=== PATIENT | male | born 1980 | race African-American/Black ===

== ENCOUNTER 2020-12-02 03:16 | Observation (INO) ==
[2020-12-02] MEDS ORDERED: Ondansetron 4 MG/2 ML VIAL IVP ONE ×2 (05:07→14:21)
[2020-12-02 05:21] LABS: Basophils % 0.1 %; Eosinophils % 0.1 %; Hematocrit 41.7 % (37.5-50.1); Immature Granulocytes % 0.5 % (0-4); Lymphocytes % 6.6 %; Mean Corpuscular HGB Conc 33.6 g/dL (31.6-35.5); Mean Corpuscular Hemoglobin 30.9 pg (28.0-33.3); Mean Corpuscular Volume 92.1 fL (83.0-100.0); Mean Platelet Volume 10.7 fL (9.4-12.4); Monocytes # 1.2 K/mcL (0.0-1.3); Monocytes % 7.8 %; Platelet Count 282 K/mcL (140-400); Red Blood Count 4.53 M/mcL (4.19-5.50); Red Cell Distribution Width 13.9 % (11.5-14.5); Segmented Neutrophils % 84.9 %; White Blood Count 15.3 K/mcL (4.3-11.1)
[2020-12-02 05:31] LABS: Prothrombin Time 11.5 Seconds (9.4-12.1)
[2020-12-02 05:33] LABS: Activated Partial Thrombo Time 27.1 Seconds (26.0-36.0)
[2020-12-02 05:46] LABS: Acetaminophen < 10 mcg/mL (10-20); Alanine Aminotransferase 43 Units/L (7-52); Albumin 4.3 g/dL (3.5-5.7); Albumin/Globulin Ratio 1.8 (1.1-2.2); Alkaline Phosphatase 62 Units/L (34-104); Aspartate Amino Transferase 37 Units/L (13-39); BUN/Creatinine Ratio 10 (6-26); Bilirubin,Total 0.5 mg/dL (0.3-1.0); Blood Urea Nitrogen 14 mg/dL (6-20); Calcium 8.6 mg/dL (8.6-10.3); Carbon Dioxide 24 mEq/L (23-29); Chloride 109 mEq/L (98-107); Ethanol < 10 mg/dL (Less than 10); Globulin 2.4 g/dL (2.4-3.5); Glucose 75 mg/dL (70-105); Magnesium 2.2 mg/dL (1.6-2.6); Osmolality,Calculated 295 (280-300); Phosphorous 4.3 mg/dL (2.7-4.5); Potassium 4.6 mEq/L (3.5-5.1); Sodium 143 mEq/L (136-145); Total Protein 6.7 g/dL (6.4-8.9); eGFR For African Americans > 60 (> 60); eGFR For Non-African Americans 58 (> 60)
[2020-12-02 05:47] LABS: Salicylate < 2.5 mg/dL (15.0-30.0); Troponin I 0.08 ng/mL (< 0.04)
[2020-12-02] MEDS ORDERED: Aspirin 81 MG TAB.CHEW PO ONE (08:42)
[2020-12-02] MEDS ORDERED: Naloxone 0.4 MG/ML INJ IVP PRN (08:42)
[2020-12-02 08:43] LABS: Bilirubin,Urine Negative (Negative); Blood,Urine Trace-intact (Negative); Clarity,Urine Clear (Clear); Color,Urine Yellow (Yellow); Glucose,Urine (UA) Normal (Normal); Ketones,Urine 40 mg/dL (Negative); Leukocyte Esterase,Urine Negative (Negative); Nitrite,Urine Negative (Negative); PH,Urine 5.5 pH Units (5.0-8.0); Protein,Urine 100 mg/dL (Neg-Trace); Specific Gravity,Urine >= 1.030 (1.010-1.025)
[2020-12-02 08:49] LABS: WBC,Urine 0-3 per hpf (0-3)
[2020-12-02 08:50] LABS: Bacteria,Urine Few per hpf (None-Few); Hyaline Casts,Urine Many per lpf (None Seen); Mucus,Urine Moderate per lpf (None-Few)
[2020-12-02] MEDS ORDERED: cloNIDine HCL 0.1 MG TABLET PO SCH (09:00)
[2020-12-02 09:26] VITALS: BP 103/67
[2020-12-02] MEDS ORDERED: 0.9 % Sodium Chloride 1,000 ML IVC SCH (09:45)
[2020-12-02] MEDS ORDERED: Nicotine 14 MG PATCH.TD24 TD SCH (09:59)
[2020-12-02 10:35] LABS: Chol/HDL Ratio 2.7 (0-4.9)
[2020-12-02 10:39] LABS: Amphetamine Screen,Urine Positive ng/mL (Cutoff=1000); Barbiturate Screen,Urine Negative ng/mL (Cutoff=200); Benzodiazepines Screen,Urine Negative ng/mL (Cutoff=200); Cannabinoid Screen,Urine Positive ng/mL (Cutoff = 50); Cocaine Screen,Urine Negative ng/mL (Cutoff= 300); Opiate Screen,Urine Negative ng/mL (Cutoff=300); Phencyclidine Screen,Urine Negative ng/mL (Cutoff=25)
[2020-12-02] MEDS ORDERED: Perflutren Lipid Microsphere 1.3 ML in 0.9 % Sodium Chloride 8.7 ML IVP PRN (11:32)
[2020-12-02] MEDS ORDERED: *HR* Heparin 5,000 UNIT/ML VIAL IVP PRN ×2 (12:23)
[2020-12-02] MEDS ORDERED: *HR* Heparin 5,000 UNIT/ML VIAL IVP ONE (12:23)
[2020-12-02] MEDS ORDERED: Heparin 25,000UNIT/250ML 1/2NS 25,000 UNIT/250 ML IV.SOLN IVC SCH (12:30)
[2020-12-02 12:43] LABS: Hematocrit 38.6 % (37.5-50.1); Hemoglobin 13.1 g/dL (12.9-16.9); Mean Corpuscular HGB Conc 33.9 g/dL (31.6-35.5); Mean Corpuscular Hemoglobin 30.5 pg (28.0-33.3); Mean Platelet Volume 10.5 fL (9.4-12.4); Platelet Count 271 K/mcL (140-400); Red Blood Count 4.29 M/mcL (4.19-5.50); Red Cell Distribution Width 13.8 % (11.5-14.5); White Blood Count 14.2 K/mcL (4.3-11.1)
[2020-12-02 12:49] LABS: INR 1.1; Prothrombin Time 12.2 Seconds (9.4-12.1)
[2020-12-02 12:55] LABS: Heparin anti-factor XA UFH < 0.04 IU/mL (0.30-0.70)
[2020-12-02] MEDS ORDERED: Ondansetron 4 MG/2 ML VIAL ONE (14:26)
== END 2020-12-02 14:32 | disposition short-term general hospital (02) ==
LOC: EMEROOPIK 03:16 → INPPIK 03:16
PROVIDERS: ADMIT Family Medicine; ATTEND Family Medicine